=== PATIENT | female | born 2000 | race Caucasian/White ===

== ENCOUNTER 2020-04-14 10:47 | Emergency (ER) | payer OTHER, SELFPAY ==
--- NOTE | ~2020-04-14 | XR_ITS ---
XR chest 1V portable DATE: 04/14/2020 11:18 INDICATION: Weight loss. Weakness. TECHNIQUE: Portable upright AP chest on 04/14/2020 at 1118 hours COMPARISON: None FINDINGS: Normal heart size. No hilar or mediastinal enlargement. No pulmonary infiltrate or consolid ation, pleural effusion or pulmonary vascular congestion or pneumothorax. IMPRESSION: No active cardiopulmonary disease Reviewed, dictated and finalized at location A.
[2020-04-14 10:50] VITALS: BP 133/71; PULSE 100; RESP 18; TEMP 36.3; O2SAT 100
--- NOTE | 2020-04-14 11:08 | ECG_ITS ---
Measurements Intervals [place] Rate: 75 P: 63 [place]: 120 QRS: 82 QRSD: 79 T: 62 QT: 378 QTc: 422 Interpretive Statements SINUS RHYTHM BORDERLINE T WAVE ABNORMALITY- ANTERIOR LEADS BASELINE WANDER- V5-V6 BORDERLINE ECG Electronically Signed On 04-14-2020 13:28:55 CDT by Leon Oropeza D.O.
[2020-04-14 11:24] LABS: Basophils Absolute Auto 0.1 K/mm3 (0.0-0.1); Basophils Percent Auto 0.9 % (0.2-1.2); Eosinophils Absolute Auto 0.2 K/mm3 (0-0.3); Eosinophils Percent Auto 2.7 % (0-4.4); Hemoglobin 13.3 g/dL (12.0-15.0); Immature Granulocyte Absolute 0.01 K/mm3 (0.00-0.031); Immature Granulocyte Percent A 0.2 % (0-0.5); Lymphocytes Absolute Auto 2.24 K/mm3 (0.9-3.2); Lymphocytes Percent Auto 33.9 % (18.3-44.2); Mean Corpuscular Hemoglobin 30.2 pg (26-34); Mean Corpuscular Volume 86.2 fl (80-100); Monocytes Absolute Auto 0.6 K/mm3 (0.1-0.6); Monocytes Percent Auto 8.6 % (2.6-8.5); Neutrophils Absolute Auto 3.6 K/mm3 (1.3-6.7); Neutrophils Percent Auto 53.7 % (45.5-73.1); Platelet Count Result 324 k/mm3 (150-375); Red Blood Count 4.41 M/mm3 (4.2-5.4); Red Cell Distribution Width 12.3 % (11.5-14.5); White Blood Count 6.6 K/mm3 (4.5-10.0)
[2020-04-14 11:35] LABS: Add Urine Microscopic? YES; Appearance Urine Clear (Clear); Bilirubin Urine Negative (Negative); Blood Urine 1+ (Negative); Color Urine Straw (Yellow); Glucose Urine UA Negative (Negative); Ketones Urine Negative (Negative); Leukocyte Esterase Ur Negative LEU/UL (Negative); Nitrate Urine Negative (Negative); Protein Urine Negative (Negative); RBC Urine 0-2 /hpf (0-2); Specific Grav Ur 1.006 (1.001-1.035); Squamous Epithelial Cell Urine Occasional /hpf (Few); Urobilinogen Urine Negative mg/dL (<2.0); WBC Urine 0-3 /hpf
[2020-04-14 11:38] LABS: D Dimer < 0.22 ug/mL (<0.48)
[2020-04-14 13:02] LABS: Alanine Aminotransferase 10 U/L (4-35); Albumin Level 4.5 g/dL (3.5-5.1); Alkaline Phosphatase 47 U/L (38-126); Aspartate Amino Transferase 23 U/L (14-36); Bilirubin,Total 0.4 mg/dL (0.2-1.3); Blood Urea Nitrogen 7 mg/dL (7-17); Calcium 9.5 mg/dL (8.4-10.2); Carbon Dioxide 23 mmol/L (22-30); Chloride 106 mmol/L (98-107); Estimated Glomerular Filt Rate > 60; Glucose 86 mg/dL (65-105); Potassium 3.9 mmol/L (3.4-5.0); Sodium 136 mmol/L (137-145)
--- NOTE | 2020-04-14 13:08 | ED.DIZZY ---
HPI - Dizziness General Chief Complaint: Dizziness <KENTON Quiroz Last Filed: 04/14/20 13:20> Stated Complaint: SOB, weak <KENTON Quiroz Last Filed: 04/14/20 13:20> Time Seen by Provider: 04/14/20 11:07 <KENTON Quiroz Last Filed: 04/14/20 13:20> Source: patient <KENTON Quiroz Last Filed: 04/14/20 13:20> Mode of arrival: ambulatory <KENTON Quiroz Last Filed: 04/14/20 13:20> Limitations: no limitations <KENTON Quiroz Last Filed: 04/14/20 13:20> History of Present Illness HPI Narrative: Patient is a 20-year-old female who presents to emergency department for evaluation dizziness and weight loss and fatigue shortness of breath which is been present now for over a month. Patient denies any URI symptoms chest pain. Patient denies similar occurrence in the past patient on arrival per private vehicle presents with normal gait and no distress. . Patient does not have a primary care doctor . Patient is not been seen for these complaints <KENTON Quiroz Last Filed: 04/14/20 13:20> Related Data Home Medications: Home Medications Medication Instructions Recorded Confirmed desogestrel-ethinyl estradiol tablet 04/14/20 [Isibloom] <KENTON Quiroz Last Filed: 04/14/20 13:20> Allergies/Adverse Reactions: Allergies Allergy/AdvReac Type Severity Reaction Status Date / Time No Known Allergies Allergy Unverified 04/14/20 10:53 <Micky Barone PA-C - Last Filed: 04/14/20 13:20> Review of Systems Review of Systems: All systems reviewed & are unremarkable except as noted in HPI and below <KENTON Quiroz Last Filed: 04/14/20 13:20> [facility] Family History Family History: Family History (Updated 06/22/16 @ 23:19 by DOCTOR UNKNOWN) Grandparent Family history of malignant neoplasm of breast Family history of diabetes mellitus in first degree relative <KENTON Quiroz Last Filed: 04/14/20 13:20> Social History Social History: Social History Smoking status: Never smoker Alcohol intake: current Substance use type: marijuana Gender identity (if verbalized by the patient): Female <Micky Barone PA-C - Last Filed: 04/14/20 13:20> Exam Narrative: Exam Narrative: GENERAL: Well-appearing, well-nourished, and in no acute distress. HEAD: Normocephalic, atraumatic. EYES: PERRLA and EOMI. ENT: Nares clear, no rhinorrhea or epistaxis. Mucous membranes moist. Oropharynx without tonsillar hypertrophy exudate or other lesions. Bilateral TMs pearly richards nonbulging NECK: Supple. No adenopathy or masses. CHEST: Clear to auscultation. No respiratory distress. No wheezes rales or rhonchi HEART: Regular rate and rhythm. No murmur heard. Normal peripheral pulses. ABDOMEN: Soft, nontender, nondistended EXTREMITIES: Normal range of motion. No edema. SKIN: Warm, dry, no rash. NEURO: No focal deficits. Alert and oriented x3. Cranial nerves II through XII grossly intact PSYCH: Normal mood and affect. <Micky Barone PA-C - Last Filed: 04/14/20 13:20> Course Course Emergency Course: Patient in the room in no distress aware of case findings treatment plan and diagnosis agreeing to follow-up as directed or to return if symptoms worsen or concerns <Micky Barone PA-C - Last Filed: 04/14/20 13:20> Vital Signs Vital signs: Vital Signs Temperature 97.4 F L 04/14/20 10:50 Pulse Rate 100 04/14/20 10:50 Respiratory Rate 18 04/14/20 10:50 Blood Pressure 133/71 04/14/20 10:50 Pulse Oximetry 100 04/14/20 10:50 Temperature 97.4 F L 04/14/20 10:50 Pulse Rate 80 04/14/20 13:33 Respiratory Rate 18 04/14/20 13:33 Blood Pressure 128/78 04/14/20 13:33 Pulse Oximetry 100 04/14/20 13:33 <Micky Barone PA-C - Last Filed: 04/14/20 13:20> Vital Signs
[2020-04-14 13:30] LABS: Barbiturate Screen Urine Negative (Negative); Benzodiazepines Screen Urine Negative (Negative)
[2020-04-14 13:33] VITALS: BP 128/78; PULSE 80; RESP 18; O2SAT 100
[2020-04-14 13:40] LABS: Amphetamine Screen Urine Negative (Negative); Cannabinoid Screen Urine Negative (Negative); Cocaine Screen Urine Negative (Negative); Methadone Screen Urine Negative (Negative); Opiate Screen Urine Negative (Negative); Phencyclidine Screen Urine Negative (Negative)
== END 2020-04-14 13:34 | disposition home or self-care (01) ==
PROVIDERS: Emergency Medicine Emergency Medical Services; Emergency Provider General Practice
DX: R42 Dizziness and giddiness (principal); R94.31 Abnormal electrocardiogram [ECG] [EKG]
CPT/HCPCS: 36415; 71045; 80053; 80307; 81001; 81025; 85025; 85380; 93005; 99283

== ENCOUNTER 2021-03-22 10:53 | Emergency (ER) | payer OTHER, SELFPAY ==
[2021-03-22 10:59] VITALS: BP 112/77; PULSE 81; RESP 16; TEMP 37.1; O2SAT 100
--- NOTE | 2021-03-22 11:56 | ED.FEMALEGU ---
HPI - Female Genitourinary General Chief complaint: Urogenital-Female Stated complaint: poss uti Time Seen by Provider: 03/22/21 11:20 Source: patient, RN notes reviewed and old records reviewed Mode of arrival: ambulatory Limitations: no limitations History of Present Illness HPI Narrative: 21 year old female who presents to [facility] with complaints of burning with urination, urinary frequency and suprapubic cramping and pressure. Patient states that she has no visible blood in her urine, no complaints of nausea or vomiting, no fever, chills or sweats. Patient denies any flank pain states history of lumbar back pain for which she sees a chiropractor for care the past 6 months. Patient denies any vaginal discharge or itching, denies any new sexual partners or concern for possible STD's. MD elicited complaint: dysuria Onset (ago): day(s) (2) Location of symptoms: external genitalia and suprapubic Female Urogenital Radiation: Suprapubic Severity scale (1-10): 5 Quality of pain: cramping and aching Vaginal discharge: none Vaginal bleeding: none Urinary symptoms: Dysuria and Frequency Exacerbating factors: urination Relieving factors: none Associated symptoms: painful (urination) and other (suprapubic pain) Treatment prior to arrival: none Sexual activity: Yes Patient : No Date of Last Menstrual Period: 03/17/21 Related Data Home Medications Medication Instructions Recorded Confirmed desogestrel-ethinyl estradiol tablet 04/14/20 [Isibloom] Allergies Allergy/AdvReac Type Severity Reaction Status Date / Time No Known Allergies Allergy Verified 03/22/21 11:06 Review of Systems Review of Systems: Narrative: CONSTITUTIONAL: Denies fever, chills, or sweats. EYES: Denies visual changes, redness, or discharge. ENT: Denies rhinorrhea, congestion, sore throat, or otalgia. CARDIOVASCULAR: Denies chest pain, palpitations, or edema. RESPIRATORY: Denies cough or dyspnea. GASTROINTESTINAL: Positive suprapubic abdominal pain and tenderness,no nausea, vomiting, or diarrhea. GENITOURINARY: Positive dysuria or hematuria. SKIN: Denies rash or itching. MUSCULOSKELETAL: Positive for lower back pain,no joint pain, or myalgia. NEUROLOGIC: Denies headache, numbness, or weakness. PSYCHIATRIC: Denies anxiety or depression. All systems reviewed & are unremarkable except as noted in HPI and below PMFSH Past Medical History Medical History (Updated 03/22/21 @ 12:25 by Yoly Zhong NP) Lower back pain Surgical History Surgical History (Updated 03/22/21 @ 12:04 by Yoly Zhong NP) History of tonsillectomy and adenoidectomy Family History Family History Grandparent Family history of malignant neoplasm of breast Family history of diabetes mellitus in first degree relative Social History Social History (Updated 03/22/21 @ 12:43 by Yoly Zhong NP) Tobacco type: e-cigarettes/vaping Alcohol intake: current Substance use type: marijuana Gender identity (if verbalized by the patient): Female Comments At time of signature, agree with nursing past medical, surgical, social and family history. There is no relevant family history pertinent to the presenting complaint Exam Narrative: Exam Narrative: GENERAL: Well-appearing, well-nourished, and in no acute distress. HEAD: Normocephalic, atraumatic. EYES: PERRLA and EOMI. ENT: Nares clear, no rhinorrhea or epistaxis. Mucous membranes moist. NECK: Supple.no lymphadenopathy CHEST: Clear to auscultation. No respiratory distress.SAO2 100% on room air HEART: Regular rate and rhythm. No murmur heard. Normal peripheral pulses. ABDOMEN: Soft, tender suprapubic, nondistended, normal active bowel sounds, no CVA tenderness on examination. EXTREMITIES: Normal range of motion. No edema. lower back pain history for which she sees chiropractor, denies any tingling or numbness to her lower extremities, no saddle pa
== END 2021-03-22 12:15 | disposition home or self-care (01) ==
PROVIDERS: Emergency Provider Registered Nurse
DX: N39.0 Urinary tract infection, site not specified (principal); F17.200 Nicotine dependence, unspecified, uncomplicated
CPT/HCPCS: 81003; 87086; 99213; G0463

== ENCOUNTER 2021-11-01 09:39 | Outpatient (CLI) | payer OTHER, SELFPAY | END 2021-11-01 09:40 | disposition home or self-care (01) | PROVIDERS: PCP Family Medicine; Visit Provider Family Medicine | DX: R63.4 Abnormal weight loss (principal) | CPT/HCPCS: 36415; 84443 ==

== ENCOUNTER 2022-03-20 09:12 | Outpatient (CLI) | payer OTHER, SELFPAY ==
--- NOTE | ~2022-03-20 | XR_ITS ---
EXAMINATION: XR ankle LT min 3V DATE: 03/20/2022 09:22 INDICATION: Left ankle pain TECHNIQUE: Anteroposterior, oblique, mortise, and lateral views of the left ankle were obtained. COMPARISON: None. FINDINGS: Alignment is normal. No fracture. Joint spaces are well maintained. No ankle joint effusion. The so ft tissues are unremarkable. IMPRESSION: 1. Negative left ankle radiographs. Reviewed, dictated and finalized at location B.
== END 2022-03-20 09:13 | disposition home or self-care (01) ==
PROVIDERS: PCP Family Medicine; Visit Provider Family Medicine
DX: M25.572 Pain in left ankle and joints of left foot (principal)
CPT/HCPCS: 73610

== ENCOUNTER 2023-06-27 11:26 | Outpatient (CLI) | payer OTHER, SELFPAY ==
--- NOTE | ~2023-06-27 | XR_ITS ---
EXAMINATION: XR wrist RT 2V, XR hand RT 2V DATE: 06/27/2023 11:40 INDICATION: Right wrist pain post injury TECHNIQUE: 1. Posteroanterior and lateral views of the right wrist were obtained. 2. Dorsal palmar and lateral views of the right hand were obtained. COMPARISON: None. FINDINGS: Alignment of the right hand and wrist is normal. No fracture identified. Joint spaces are normal. No erosions. No focal soft tissue swelling. IMPRESSION: 1. Negative right hand and wrist radiographs. Reviewed, dictated and finalized at location A. IMPRESSION: 1. Negative right hand and wrist radiographs.
[2023-06-27 18:37] LABS: Mean Corpuscular HGB Conc 33.3 g/dl (32-36); Mean Corpuscular Volume 87.1 fl (80-100); Mean Platelet Volume 10.6 fl (7.4-10.4); Platelet Count Result 374 k/mm3 (150-375); Red Blood Count 4.48 M/mm3 (4.2-5.4); Red Cell Distribution Width 12.1 % (11.5-14.5); White Blood Count 9.6 K/mm3 (4.5-10.0)
[2023-06-27 18:56] LABS: Anion Gap 9 mmol/L (8-16); Blood Urea Nitrogen 6 mg/dL (7-17); Calcium 9.4 mg/dL (8.4-10.2); Carbon Dioxide 23 mmol/L (22-30); Chloride 103 mmol/L (98-107); Estimated Glomerular Filt Rate > 60; Glucose 80 mg/dL (65-110); Potassium 4.4 mmol/L (3.4-5.0); Sodium 135 mmol/L (137-145)
== END 2023-06-27 11:27 | disposition home or self-care (01) ==
LOC: ANHBWCLAB 11:28
PROVIDERS: PCP Family Medicine; Visit Provider Nurse Practitioner Adult Health
DX: R53.83 Other fatigue (principal); M25.539 Pain in unspecified wrist
CPT/HCPCS: 36415; 73100; 73120; 80048; 84443; 85027

== ENCOUNTER 2023-08-20 08:42 | Outpatient (CLI) | payer OTHER, SELFPAY ==
--- NOTE | 2023-08-20 11:30 | NEURO_ITS ---
Impression: # Complains of numbness and pain in hands. # Normal Nerve Conduction Study. # No evidence of Carpal Tunnel Syndrome or ulnar neuropathy at this time. # Normal needle/EMG. Nerve Conduction Studies Anti Sensory Summary Table Stim Site NR Peak (ms) P-T Amp (?V) Site1 Site2 Delta-P (ms) Dist (cm) [place] (m/s) Left Median Anti Sensory (2-3nd Digit) Wrist 2.8 92.6 Wrist 2-3nd Digit 2.8 14.0 50 Wrist 2.8 75.5 Wrist 2-3nd Digit 2.8 14.0 50 Right Median Anti Sensory (2-3nd Digit) Wrist 2.7 73.7 Wrist 2-3nd Digit 2.7 14.0 52 Wrist 2.5 83.3 Wrist 2-3nd Digit 2.7 14.0 52 Left Radial Anti Sensory (Base 1st Digit) Wrist 1.8 27.5 Wrist Base 1st Digit 1.8 0.0 Right Radial Anti Sensory (Base 1st Digit) Wrist 2.1 19.5 Wrist Base 1st Digit 2.1 0.0 Left Ulnar Anti Sensory (5th Digit) Wrist 2.6 53.4 Wrist 5th Digit 2.6 14.0 54 Right Ulnar Anti Sensory (5th Digit) Wrist 2.8 22.6 Wrist 5th Digit 2.8 14.0 50 Motor Summary Table Stim Site NR Onset (ms) O-P Amp (mV) Site1 Site2 Delta-0 (ms) Dist (cm) [place] (m/s) Left Median Motor (Abd Poll Brev) Wrist 2.7 5.2 Elbow Wrist 4.1 26.0 63 Elbow 6.8 10.7 Right Median Motor (Abd Poll Brev) Wrist 2.6 9.8 Elbow Wrist 4.0 26.0 65 Elbow 6.6 11.0 Left Ulnar Motor (Abd Dig Minimi) Wrist 2.2 6.2 A Elbow Wrist 4.1 25.0 61 A Elbow 6.3 5.4 Right Ulnar Motor (Abd Dig Minimi) Wrist 2.0 11.4 A Elbow Wrist 4.3 27.0 63 A Elbow 6.3 10.9 F Wave Studies NR F-Lat (ms) L-R F-Lat (ms) Left Median (Mrkrs) (Abd Poll Brev) 23.24 0.29 Right Median (Mrkrs) (Abd Poll Brev) 23.54 0.29 Left Ulnar (Mrkrs) (Abd Dig Min) 24.38 0.31 Right Ulnar (Mrkrs) (Abd Dig Min) 24.06 0.31 EMG Side Muscle Nerve Root Ins Act Fibs Amp Dur Recrt Comment Right 1stDorInt Ulnar C8-T1 Nml Nml Nml Nml Nml Right Ext Indicis Radial (Post Int) C7-8 Nml Nml Nml Nml Nml Right Ext Digitorum Radial (Post Int) C7-8 Nml Nml Nml Nml Nml Right BrachioRad Radial C5-6 Nml Nml Nml Nml Nml Right PronatorTeres Median C6-7 Nml Nml Nml Nml Nml Right Abd Poll Brev Median C8-T1 Nml Nml Nml Nml Nml Left 1stDorInt Ulnar C8-T1 Nml Nml Nml Nml Nml Left Ext Indicis Radial (Post Int) C7-8 Nml Nml Nml Nml Nml Left Ext Digitorum Radial (Post Int) C7-8 Nml Nml Nml Nml Nml Left BrachioRad Radial C5-6 Nml Nml Nml Nml Nml Left PronatorTeres Median C6-7 Nml Nml Nml Nml Nml Left Abd Poll Brev Median C8-T1 Nml Nml Nml Nml Nml MTDD
== END 2023-08-20 08:43 | disposition home or self-care (01) ==
LOC: ANHNEURO 08:43
PROVIDERS: PCP Nurse Practitioner Adult Health; Visit Provider Nurse Practitioner Adult Health
DX: R20.2 Paresthesia of skin (principal)
CPT/HCPCS: 95886; 95911

== ENCOUNTER 2024-01-21 16:42 | Emergency (ER) | payer OTHER, SELFPAY ==
[2024-01-21 16:49] VITALS: BP 115/67; PULSE 85; RESP 16; TEMP 36.9; O2SAT 100
--- NOTE | 2024-01-21 17:32 | ED.GENADULT ---
HPI - General Adult General Chief complaint: Upper Respiratory Infection Stated complaint: throat/fever/sinus Source: patient Mode of arrival: ambulatory Limitations: no limitations History of Present Illness HPI narrative: Patient presents for evaluation of sick symptoms for last 9 days. Symptoms include fever, cough, mild shortness of breath, sore throat, sinus congestion, clear rhinorrhea, frontal headache and generalized body aches. 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 She took COVID and flu tests six days ago and again yesterday with negative results for all tests. She uses smokeless tobacco. Related Data Allergies Allergy/AdvReac Type Severity Reaction Status Date / Time No Known Allergies Allergy Verified 12/12/23 13:04 Review of Systems Review of Systems: CONSTITUTIONAL: Reports fever. Denies chills, or sweats. EYES: Denies visual changes, redness, or discharge. ENT: Reports sore throat, nasal congestion and clear rhinorrhea.. CARDIOVASCULAR: Denies chest pain, palpitations, or edema. RESPIRATORY: Reports cough shortness of breath. GASTROINTESTINAL: Denies abdominal pain, nausea, vomiting, or diarrhea. GENITOURINARY: Denies dysuria or hematuria. SKIN: Denies rash or itching. MUSCULOSKELETAL: Reports generalized body aches. NEUROLOGIC: Reports headache. Denies numbness, dizziness, or weakness. PSYCHIATRIC: Denies anxiety or depression. [facility] Past Medical History Medical History Anxiety History of frequent headaches Lower back pain Surgical History Surgical History History of tonsillectomy and adenoidectomy Family History Family History Grandparent Family history of malignant neoplasm of breast Family history of diabetes mellitus in first degree relative Hypertension Alcohol abuse Sibling Depression Anxiety Social History Social History Tobacco type: smokeless tobacco Alcohol intake: current Drinks per week: 2 Substance use: former Substance use type: marijuana Lack of Transportation: No Lack of Food: Never True Current Housing: I Have Housing Concerned About Future Housing: No Difficulty Paying Gas/Electric Bills: No Difficulty Paying for Meds: No Currently Unemployed: No Education: Trade/Vocational Certificate Difficulty w/ Childcare or Family Care: No Living arrangements: with family Gender identity (if verbalized by the patient): Female Exam Narrative: GENERAL: Well-appearing, well-nourished, and in no acute distress. HEAD: Normocephalic, atraumatic. EYES: PERRLA and EOMI. ENT: Nares clear, no rhinorrhea or epistaxis. Mucous membranes moist. Posterior pharyngeal erythema without exudate. Uvula is midline. Bilateral TMs pearly richards nonbulging NECK: Supple. No adenopathy or masses. No carotid bruits or JVD CHEST: Clear to auscultation. No respiratory distress. No wheezes rales or rhonchi HEART: Regular rate and rhythm. No murmur heard. Normal peripheral pulses. ABDOMEN: Soft, nontender, nondistended, normal active bowel sounds. EXTREMITIES: Normal range of motion. No edema. SKIN: Warm, dry, no rash. NEURO: No focal deficits. Alert and oriented x3. PSYCH: Normal mood and affect. Course Course Emergency Course: This is a 24 old female who presented for evaluation of sick symptoms for 9 days. Recent flu and COVID test were negative. She meets criteria for ABRS based upon duration of time in which she has been symptomatic and presence of fever. Will dc with augmentin. Increase hydration. [id number] agents for symptom management. Follow up with primary provider. Go to the ER for worsening symptoms. Patient in agreement with plan of care. Level of Care: Expr
== END 2024-01-21 17:35 | disposition home or self-care (01) ==
PROVIDERS: Emergency Provider Nurse Practitioner; PCP Family Medicine
DX: J01.90 Acute sinusitis, unspecified (principal); F17.290 Nicotine dependence, other tobacco product, uncomplicated
CPT/HCPCS: 99213; G0463

== ENCOUNTER 2024-02-13 12:39 | Outpatient (CLI) | payer OTHER, SELFPAY ==
[2024-02-13 20:06] LABS: Alanine Aminotransferase 15 U/L (6-35); Albumin Level 4.4 g/dL (3.5-5.1); Alkaline Phosphatase 53 U/L (38-126); Anion Gap 6 mmol/L (8-16); Aspartate Amino Transferase 44 U/L (14-36); Bilirubin,Total 0.6 mg/dL (0.2-1.3); Blood Urea Nitrogen 14 mg/dL (7-17); Calcium 9.7 mg/dL (8.4-10.2); Carbon Dioxide 28 mmol/L (22-30); Chloride 103 mmol/L (98-107); Estimated Glomerular Filt Rate > 60; Glucose 80 mg/dL (65-110); Magnesium 2.1 mg/dL (1.6-2.3); Potassium 4.4 mmol/L (3.4-5.0); Sodium 137 mmol/L (137-145)
[2024-02-13 21:11] LABS: Folic Acid 15.1 ng/mL (2.76->20)
[2024-02-13 22:41] LABS: Vitamin D 25 Hydroxy 44.1 ng/mL
== END 2024-02-13 12:40 | disposition home or self-care (01) ==
LOC: ANHBWCLAB 12:44
PROVIDERS: PCP Family Medicine; Visit Provider Nurse Practitioner Adult Health
DX: R53.83 Other fatigue (principal)
CPT/HCPCS: 36415; 80053; 82306; 82607; 82746; 83735

== ENCOUNTER 2024-10-05 13:06 | Emergency (ER) | payer OTHER, SELFPAY ==
[2024-10-05 13:07] VITALS: BP 105/68; PULSE 82; RESP 15; TEMP 36.3; O2SAT 99
--- NOTE | 2024-10-05 15:13 | ED_ITS ---
HPI - General Adult General Chief complaint: Nausea/Vomiting/Diarrhea Stated complaint: N/V Time Seen by Provider: 10/05/24 14:45 History of Present Illness HPI narrative: [age] old female presents to the emergency department for evaluation of nausea vomiting and diarrhea that started last night. Patient states that she started having symptoms yesterday and the slowly progressed and patient is unable to keep down any fluids at this time. Patient denies any pain with urination denies any abdominal pain. Patient does not suspect Related Data Allergies Allergy/AdvReac Type Severity Reaction Status Date / Time amoxicillin AdvReac Intermediate Nausea Verified 07/30/24 13:25 Review of Systems Review of Systems: All systems reviewed & are unremarkable except as noted in HPI and below PMFSH Past Medical History Medical History Anxiety History of frequent headaches Lower back pain Surgical History Surgical History History of tonsillectomy and adenoidectomy Family History Family History Grandparent Family history of malignant neoplasm of breast Family history of diabetes mellitus in first degree relative Hypertension Alcohol abuse Sibling Depression Anxiety Social History Social History Smoking status: Never smoker Tobacco type: smokeless tobacco Alcohol intake: current Drinks per week: 2 Substance use: former Substance use type: marijuana Lack of Transportation: No Lack of Food: Never True Current Housing: I Have Housing Concerned About Future Housing: No Difficulty Paying Gas/Electric Bills: No Difficulty Paying for Meds: No Currently Unemployed: No Education: Trade/Vocational Certificate Difficulty w/ Childcare or Family Care: No Living arrangements: with family Gender identity (if verbalized by the patient): Female Exam Narrative: APPEARANCE: Well appearing, no pain, no distress, well-nourished. HEAD: normocephalic, atraumatic. EYES: PERRLA/EOMI, conjunctivae clear. NOSE: Normal no drainage EARS:TMS clear with good light reflex. THROAT: Pharynx clear, no exudate. NECK: Supple. No adenopathy, no masses. RESPIRATORY: Airway patent, respirations nonlabored. Clear to auscultation bilaterally, no rales, rhonchi, wheezing. CARDIOVASCULAR: Regular rate and rhythm without murmurs rubs or gallops. ABDOMINAL: Soft, nontender, nondistended, normal bowel sounds MUSCULOSKELETAL: Moves all extremities. Strength/ROM intact, No edema, No calf tenderness. NEURO: Alert. Cranial nerves II through XII intact. Good gait. Good coordination SKIN: Warm, dry. Normal Color Course Vital Signs Vital signs: Vital Signs Temperature 97.4 F L 10/05/24 13:07 Pulse Rate 82 10/05/24 13:07 Respiratory Rate 15 10/05/24 13:07 Blood Pressure 105/68 10/05/24 13:07 Pulse Oximetry 99 10/05/24 13:07 Oxygen Delivery Room Air 10/05/24 13:07 Temperature 97.4 F L 10/05/24 13:07 Pulse Rate 98 10/05/24 17:30 Respiratory Rate 16 10/05/24 17:30 Blood Pressure 120/76 10/05/24 17:30 Pulse Oximetry 99 10/05/24 17:30 Oxygen Delivery Room Air 10/05/24 13:07 Medical Decision Making MDM Narrative Medical decision making narrative: [age] old female present to the emergency department for evaluation for nausea vomiting and diarrhea. Patient is afebrile but does have a leukocytosis of 10.9 and hemoglobin of 13.6. Patient has no significant abnormalities on her CMP. UA was positive for ketones but negative for infection, patient denies any urinary symptoms. Urine culture was ordered. On re-evaluation patient is tolerating p.o. and does feel improved. Patient and family were updated on the results of the workup and recommended plan for clear liquid diet for the next 2 days along with Zofran for nausea control and to advance to a bland diet. All questions concerns were addressed patient was comfortable plan for discharge and close follow-up. Differential Diagnosis Differential Diagnosis: , nausea vomiting diarrhea, colitis, diverticulitis, gastroenteritis, appendicitis, UTI Vital Signs Vital Signs: Vital Signs Temperature 97.4 F L 10/05/24 13:07 Pulse Rate 82 10/05/24 13:07 Respiratory Rate 15 10/05/24 13:07 Blood Pressure 105/68 10/05/24 13:07 Pulse Oximetry 99 10/05/24 13:07 Oxygen Delivery Room Air 10/05/24 13:07 Temperature 97.4 F L 10/05/24 13:07 Pulse Rate 98 10/05/24 17:30 Respiratory Rate 16 10/05/24 17:30 Blood Pressure 120/76 10/05/24 17:30 Pulse Oximetry 99 10/05/24 17:30 Oxygen Delivery Room Air 10/05/24 13:07 Lab Data Lab results reviewed: Yes I reviewed the patient's lab results. 10/05/24 15:12 10/05/24 15:12 Labs: Lab Results 10/05/24 10/05/24 Range/Units 15:12 15:17 WBC 10.9 H (4.5-10.0) K/mm3 RBC 4.72 (4.2-5.4) M/mm3 Hgb 13.6 (12.0-15.0) g/dL Hct 41.2 (37.0-47.0) % MCV 87.3 (80-100) fl MCH 28.8 (26-34) pg MCHC 33.0 (32-36) g/dl RDW 12.3 (11.5-14.5) % Plt Count 330 (150-375) k/mm3 MPV 9.7 (7.4-10.4) fl Immature Gran % (Auto) 0.3 (0-0.5) % Neut % (Auto) 77.3 H (45.5-73.1) % Lymph % (Auto) 15.5 L (18.3-44.2) % [place] % (Auto) 5.5 (2.6-8.5) % Eos % (Auto) 0.8 (0-4.4) % Baso % (Auto) 0.6 (0.2-1.2) % Lymph # (Auto) 1.69 (0.9-3.2) K/mm3 [place] # (Auto) 0.6 (0.1-0.6) K/mm3 Eos # (Auto) 0.1 (0-0.3) K/mm3 Baso # (Auto) 0.1 (0.0-0.1) K/mm3 Abs Immat Gran (auto) 0.03 (0.00-0.031) K/mm3 Absolute Neuts (auto) 8.4 H (1.3-6.7) K/mm3 Absolute Nucleated RBC 0.000 (0.0-0.012) K/mm3 Nucleated RBC % 0.0 (0.0-0.2) % Sodium 136 L (137-145) mmol/L Potassium 4.1 (3.4-5.0) mmol/L Chloride 101 (98-107) mmol/L Carbon Dioxide 19 L (22-30) mmol/L Anion Gap 16 H (4-12) mmol/L BUN 12 (7-17) mg/dL Creatinine 0.70 (0.7-1.0) mg/dL Estim Creat Clear Calc Not Reportable Estimated GFR > 60 (59 - ) Glucose 63 L (65-110) mg/dL Calcium 9.7 (8.4-10.2) mg/dL Total Bilirubin 1.1 (0.2-1.3) mg/dL AST 158 H (14-36) U/L ALT 331 H (6-35) U/L Alkaline Phosphatase 55 (38-126) U/L Total Protein 9.0 H (6.3-8.2) g/dL Albumin 4.9 (3.5-5.1) g/dL Lipase 69 (23-300) U/L Urine Color Dark yellow (Yellow) Urine Appearance Cloudy H (Clear) Urine pH 6.0 (5.0-9.0) Ur Specific [place] 1.032 (1.001-1.035) Urine Protein 1+ H (Negative) mg/dL Urine Glucose (UA) Negative (Negative) mg/dL Urine Ketones 4+ H (Negative) mg/dL Ur Blood (Man) Negative (Negative) Urine Nitrate Negative (Negative) Urine Bilirubin Negative (Negative) Urine Urobilinogen 1.0 (<2.0) mg/dL Add Ur Microanalysis Reviewed Leukocyte Esterase Rfl Negative (Negative) HARRIS/UL Urine RBC 0-2 (0-2) /hpf Urine WBC 0-5 (0-3) /hpf Ur Squamous Epith Cells Moderate (Few) /hpf Urine Bacteria 2+ H /hpf Urine Casts 3-5 Urine Mucus Present /lpf POC Urine HCG, Qual Negative (Negative) Discharge Plan Discharge Clinical Impression: Nausea vomiting and diarrhea Patient Disposition: Home, Self-Care Condition: Stable Instructions: Antibiotic Form, Clear Liquid Diet (ED), Acute Nausea and Vo miting (ED) Additional Instructions: Clear liquid diet for the next 1-3 days. Zofran as needed for nausea control. Have close follow-up with your primary care physician. If you have any worsening symptoms then please call or return to the emergency department. Prescriptions: New ondansetron 4 mg tablet,disintegrating 4 mg PO Q8H PRN (Reason: nausea and vomiting) Qty: 20 0RF No Action buspirone 10 mg tablet 10 mg PO BID Qty: 60 3RF venlafaxine [Effexor XR] 75 mg capsule,extended release 24hr 75 mg PO DAILY Qty: 30 1RF Ubrelvy 100 mg tablet 100 mg PO ONCE PRN (Reason: headache) Qty: 14 0RF Rx Instructions: as a single dose; may repeat once in >=2 hours after first dose if needed Follow-up/Referrals: Kyra Quiñones APRN [Primary Care Provider] - Stand Alone Forms: Work/School Release IP
[2024-10-05 15:18] LABS: BEDSIDEPREGUCG Negative (Negative)
[2024-10-05 15:24] LABS: Basophils Absolute Auto 0.1 K/mm3 (0.0-0.1); Basophils Percent Auto 0.6 % (0.2-1.2); Eosinophils Absolute Auto 0.1 K/mm3 (0-0.3); Eosinophils Percent Auto 0.8 % (0-4.4); Hematocrit 41.2 % (37.0-47.0); Hemoglobin 13.6 g/dL (12.0-15.0); Immature Granulocyte Absolute 0.03 K/mm3 (0.00-0.031); Immature Granulocyte Percent A 0.3 % (0-0.5); Lymphocytes Absolute Auto 1.69 K/mm3 (0.9-3.2); Lymphocytes Percent Auto 15.5 % (18.3-44.2); Mean Corpuscular Hemoglobin 28.8 pg (26-34); Mean Corpuscular Volume 87.3 fl (80-100); Mean Platelet Volume 9.7 fl (7.4-10.4); Monocytes Absolute Auto 0.6 K/mm3 (0.1-0.6); Monocytes Percent Auto 5.5 % (2.6-8.5); Neutrophils Absolute Auto 8.4 K/mm3 (1.3-6.7); Neutrophils Percent Auto 77.3 % (45.5-73.1); Platelet Count Result 330 k/mm3 (150-375); Red Blood Count 4.72 M/mm3 (4.2-5.4); Red Cell Distribution Width 12.3 % (11.5-14.5); White Blood Count 10.9 K/mm3 (4.5-10.0)
[2024-10-05 15:34] LABS: Alanine Aminotransferase 331 U/L (6-35); Albumin Level 4.9 g/dL (3.5-5.1); Alkaline Phosphatase 55 U/L (38-126); Anion Gap 16 mmol/L (4-12); Aspartate Amino Transferase 158 U/L (14-36); Bilirubin,Total 1.1 mg/dL (0.2-1.3); Blood Urea Nitrogen 12 mg/dL (7-17); Calcium 9.7 mg/dL (8.4-10.2); Carbon Dioxide 19 mmol/L (22-30); Chloride 101 mmol/L (98-107); Estimated Glomerular Filt Rate > 60; Glucose 63 mg/dL (65-110); Lipase 69 U/L (23-300); Potassium 4.1 mmol/L (3.4-5.0); Sodium 136 mmol/L (137-145)
[2024-10-05 15:52] LABS: Add Urine Microscopic? YES; Appearance Urine Cloudy (Clear); Bacteria Urine 2+ /hpf; Bilirubin Urine Negative (Negative); Blood Urine Negative (Negative); Color Urine Dark Yellow (Yellow); Glucose Urine UA Negative (Negative); Ketones Urine 4+ mg/dL (Negative); Leukocyte Esterase Ur Negative LEU/UL (Negative); Mucus Urine Present /lpf; Need Manual Microscopic Reviewed; Nitrate Urine Negative (Negative); Protein Urine 1+ mg/dL (Negative); RBC Urine 0-2 /hpf (0-2); Specific Grav Ur 1.032 (1.001-1.035); Squamous Epithelial Cell Urine Moderate /hpf (Few); WBC Urine 0-5 /hpf (0-3)
[2024-10-05] MEDS: SODIUM CHLORIDE 0.9% IV 1,000 ML 999 ML IV CONT (15:56)
[2024-10-05] MEDS: ONDANSETRON INJ 4 MG/2 ML VIAL IV PUSH (15:56)
--- NOTE | 2024-10-05 17:20 | PC.NURSE ---
Pt educated that her B.S. is low. Pt now able to tolerate oral intake. Pt verbalized understanding and states she will continue to stay hydrated with drinks containing sugar and electrolytes tonight.
--- NOTE | 2024-10-05 17:22 | PC.NURSE ---
Pt reports improvement in nausea. Pt able to tolerate oral intake without episode of emesis.
[2024-10-05 17:30] VITALS: BP 120/76; PULSE 98; RESP 16; O2SAT 99
== END 2024-10-05 17:38 | disposition home or self-care (01) ==
PROVIDERS: Emergency Provider Emergency Medicine; PCP Nurse Practitioner Adult Health
DX: R11.2 Nausea with vomiting, unspecified (principal); R19.7 Diarrhea, unspecified; F41.9 Anxiety disorder, unspecified; F17.220 Nicotine dependence, chewing tobacco, uncomplicated; Z79.899 Other long term (current) drug therapy
CPT/HCPCS: 36415; 80053; 81001; 81025; 83690; 85025; 96361; 96374; 99284; J2405; J7030

== ENCOUNTER 2024-11-05 13:28 | Outpatient (CLI) | payer OTHER, SELFPAY ==
[2024-11-05 19:32] LABS: Alanine Aminotransferase 10 U/L (6-35); Albumin Level 4.3 g/dL (3.5-5.1); Alkaline Phosphatase 41 U/L (38-126); Aspartate Amino Transferase 25 U/L (14-36); Bilirubin,Total 0.4 mg/dL (0.2-1.3)
== END 2024-11-05 13:29 | disposition home or self-care (01) ==
LOC: ANHBWCLAB 13:29
PROVIDERS: PCP Nurse Practitioner Adult Health; Visit Provider Nurse Practitioner Adult Health
DX: R74.8 Abnormal levels of other serum enzymes (principal)
CPT/HCPCS: 36415; 80076

== ENCOUNTER 2024-12-04 18:59 | Emergency (ER) | payer OTHER, SELFPAY ==
--- NOTE | ~2024-12-04 | CT_ITS ---
EXAMINATION: CT brain wo con DATE: 12/04/2024 21:43 INDICATION: head injury . TECHNIQUE: Computed tomography (CT) of the head was performed without intravenous contrast. The mA wa s adjusted according to patient size. Iterative reconstruction technique was employed. The dose-lengt h product was 605.33 mGy-cm. COMPARISON: None. FINDINGS: No acute intracranial hemorrhage or extra-axial fluid collection. No hydrocephalus, mass, or herniation. No acute ischemic infarct. Unremarkable dural venous sinus attenuation. No acute osseous abnormality. Mild ethmoid and right sphenoid mucosal thickening, the remaining aerated spaces are clear. IMPRESSION: No acute intracranial process. Reviewed, dictated and finalized at location K. [facility]
[2024-12-04 19:24] VITALS: BP 112/72; PULSE 80; RESP 16; TEMP 36.7; O2SAT 99
--- NOTE | 2024-12-04 22:03 | ED.GENADULT ---
HPI - General Adult General Chief complaint: Head Injury Stated complaint: day 10 of my concussion and it's getting worse Time Seen by Provider: 12/04/24 21:08 History of Present Illness HPI narrative: 24 old female presenting to the emergency department for evaluation for persistent headache. Patient reports on your easy she had a fall and struck the back of her head. Patient denies loss consciousness. Patient states she has had persistent headache over the last few days. Patient had a follow-up with her primary care physician yesterday. Related Data Allergies Allergy/AdvReac Type Severity Reaction Status Date / Time amoxicillin AdvReac Intermediate Nausea Verified 12/03/24 11:43 Review of Systems Review of Systems: All systems reviewed & are unremarkable except as noted in HPI and below PMFSH Past Medical History Medical History (Updated 12/04/24 @ 22:18 by Shelton Ramey MD) Anxiety History of frequent headaches Lower back pain Surgical History Surgical History History of tonsillectomy and adenoidectomy Family History Family History Grandparent Family history of malignant neoplasm of breast Family history of diabetes mellitus in first degree relative Hypertension Alcohol abuse Sibling Depression Anxiety Social History Social History Smoking status: Never smoker Tobacco type: smokeless tobacco Alcohol intake: current Drinks per week: 2 Substance use: former Substance use type: marijuana Lack of Transportation: No Lack of Food: Never True Current Housing: I Have Housing Concerned About Future Housing: No Difficulty Paying Gas/Electric Bills: No Difficulty Paying for Meds: No Currently Unemployed: No Education: Trade/Vocational Certificate Difficulty w/ Childcare or Family Care: No Living arrangements: with family Gender identity (if verbalized by the patient): Female Exam Narrative: APPEARANCE: Well appearing, no pain, no distress, well-nourished. HEAD: normocephalic, atraumatic. EYES: PERRLA/EOMI, conjunctivae clear. NOSE: Normal no drainage EARS:TMS clear with good light reflex. THROAT: Pharynx clear, no exudate. NECK: Supple. No adenopathy, no masses. RESPIRATORY: Airway patent, respirations nonlabored. Clear to auscultation bilaterally, no rales, rhonchi, wheezing. CARDIOVASCULAR: Regular rate and rhythm without murmurs rubs or gallops. ABDOMINAL: Soft, nontender, nondistended, normal bowel sounds MUSCULOSKELETAL: Moves all extremities. Strength/ROM intact, No edema, No calf tenderness. NEURO: Alert. Cranial nerves II through XII intact. Good gait. Good coordination. Negative Romberg, negative forward and backward tandem gait SKIN: Warm, dry. Normal Color Course Vital Signs Vital signs: Vital Signs Temperature 98.1 F 12/04/24 19:24 Pulse Rate 80 12/04/24 19:24 Respiratory Rate 16 12/04/24 19:24 Blood Pressure 112/72 12/04/24 19:24 Pulse Oximetry 99 12/04/24 19:24 Temperature 98.1 F 12/04/24 19:24 Pulse Rate 63 12/04/24 22:33 Respiratory Rate 20 12/04/24 22:33 Blood Pressure 105/72 12/04/24 22:33 Pulse Oximetry 100 12/04/24 22:33 Medical Decision Making MDM Narrative Medical decision making narrative: 24-year-old female presenting to the emergency department for evaluation for intermittent headache and concern for concussion after having a head injury on [place]. Patient's neuro exam was negative. Patient had negative neuro exam. Patient's neuro imaging was negative. Patient and family were updated on the results of the workup patient was comfortable plan for discharge and close follow-up. Differential Diagnosis Differential Diagnosis: Skull fracture, subdural hematoma, subarachnoid hemorrhage, concussion, post concussive syndrome Vital Signs Vital Signs: Vital Signs Temperature 98.1 F 12/04/24 19:24 Pulse Rate 80 12/04/24 19:24 Respiratory Rate 16 12/04/24 19:24 Blood Pressure 112/72 12/04/24 19:24 Pulse Oximetry 99 12/04/24 19:24 Temperature 98.1 F 12/04/24 19:24 Pulse Rate 63 12/04/24 22:33 Respiratory Rate 20 12/04/24 22:33 Blood Pressure 105/72 12/04/24 22:33 Pulse Oximetry 100 12/04/24 22:33 Imaging Data Radiologist's impression: Impressions Head CT 12/04/24 21:49 IMPRESSION: No acute intracranial process. Discharge Plan Discharge Clinical Impression: Concussion, Head injury Patient Disposition: Home, Self-Care Condition: Stable Instructions: Antibiotic Form, Concussion (ED), Head Injury (ED) Additional Instructions: Follow head injury guidelines. Tylenol and ibuprofen for pain control. Have close follow-up with your primary care physician. If you have any worsening symptoms then please call or return to the emergency department. Patient Language: Trinidadian Prescriptions: No Action buspirone 10 mg tablet 10 mg PO BID Qty: 60 3RF famotidine 40 mg tablet 40 mg PO DAILY Qty: 30 0RF nicotine (polacrilex) 4 mg gum 4 mg buccal Q1H Qty: 100 1RF ondansetron 4 mg tablet,disintegrating 4 mg PO Q8H PRN (Reason: nausea and vomiting) Qty: 20 0RF venlafaxine 75 mg capsule,extended release 24hr See Rx Instructions .ROUTE .COMPLEX Qty: 30 3RF Dose Instruction: TAKE 1 CAPSULE BY MOUTH DAILY Rx Instructions: TAKE 1 CAPSULE BY MOUTH DAILY norelgestromin-ethin.estradiol [Xulane] 150-35 mcg/24 hr patch weekly 1 patch transdermal Q7D Qty: 3 6RF Rx Instructions: apply once weekly for 3 weeks of a 4-week cycle Ubrelvy 100 mg tablet See Rx Instructions .ROUTE .COMPLEX Qty: 14 3RF Dose Instruction: TAKE 1 TABLET BY MOUTH 1 TIME NEEDED FOR HEADACHE. MAY REPEAT 1 TIME IN>= 2 HOURS AFTER FOR 1 DOSE NEEDED Rx Instructions: TAKE 1 TABLET BY MOUTH 1 TIME NEEDED FOR HEADACHE. MAY REPEAT 1 TIME IN>= 2 HOURS AFTER FOR 1 DOSE NEEDED Follow-up/Referrals: Kyra Quiñones APRN [Primary Care Provider] -
[2024-12-04 22:33] VITALS: BP 105/72; PULSE 63; RESP 20; O2SAT 100
== END 2024-12-04 22:33 | disposition home or self-care (01) ==
PROVIDERS: Emergency Provider Emergency Medicine; PCP Nurse Practitioner Adult Health
DX: S06.0X0A Concussion without loss of consciousness, initial encounter (principal); W19.XXXA Unspecified fall, initial encounter
CPT/HCPCS: 70450; 99284

== ENCOUNTER 2025-03-25 11:06 | Outpatient (CLI) | payer OTHER, SELFPAY ==
[2025-03-25 19:26] LABS: Basophils Absolute Auto 0.1 K/mm3 (0.0-0.1); Basophils Percent Auto 0.7 % (0.2-1.2); Eosinophils Absolute Auto 0.1 K/mm3 (0-0.3); Eosinophils Percent Auto 1.5 % (0-4.4); Hematocrit 42.4 % (37.0-47.0); Hemoglobin 13.4 g/dL (12.0-15.0); Immature Granulocyte Absolute 0.02 K/mm3 (0.00-0.031); Immature Granulocyte Percent A 0.3 % (0-0.5); Lymphocytes Absolute Auto 1.95 K/mm3 (0.9-3.2); Lymphocytes Percent Auto 26.4 % (18.3-44.2); Mean Corpuscular HGB Conc 31.6 g/dl (32-36); Mean Corpuscular Hemoglobin 28.2 pg (26-34); Mean Corpuscular Volume 89.1 fl (80-100); Mean Platelet Volume 10.2 fl (7.4-10.4); Monocytes Absolute Auto 0.5 K/mm3 (0.1-0.6); Monocytes Percent Auto 6.8 % (2.6-8.5); Neutrophils Absolute Auto 4.8 K/mm3 (1.3-6.7); Neutrophils Percent Auto 64.3 % (45.5-73.1); Platelet Count Result 349 k/mm3 (150-375); Red Blood Count 4.76 M/mm3 (4.2-5.4); Red Cell Distribution Width 12.4 % (11.5-14.5); White Blood Count 7.4 K/mm3 (4.5-10.0)
[2025-03-25 19:45] LABS: Add Urine Microscopic? YES; Appearance Urine Clear (Clear); Bacteria Urine None Seen /hpf; Bilirubin Urine Negative (Negative); Blood Urine 2+ (Negative); Color Urine Yellow (Yellow); Glucose Urine UA Negative (Negative); Ketones Urine Negative (Negative); Leukocyte Esterase Ur Negative LEU/UL (Negative); Need Manual Microscopic Reviewed; Nitrate Urine Negative (Negative); Non Pathogenic Casts 0-2; Protein Urine Negative (Negative); RBC Urine 0-2 /hpf (0-2); Specific Grav Ur 1.002 (1.001-1.035); Squamous Epithelial Cell Urine None Seen /hpf (Few); Urobilinogen Urine 0.2 mg/dL (<2.0); WBC Urine 0-5 /hpf (0-3)
[2025-03-25 21:06] LABS: Free T4 Free Thyroxine 0.83 ng/dL (0.78-2.19)
[2025-03-25 21:07] LABS: Alanine Aminotransferase 19 U/L (6-35); Albumin Level 4.7 g/dL (3.5-5.1); Alkaline Phosphatase 48 U/L (38-126); Anion Gap 10 mmol/L (4-12); Aspartate Amino Transferase 41 U/L (14-36); Bilirubin,Total 0.3 mg/dL (0.2-1.3); Blood Urea Nitrogen 8 mg/dL (7-17); Calcium 9.5 mg/dL (8.4-10.2); Carbon Dioxide 26 mmol/L (22-30); Chloride 102 mmol/L (98-107); Estimated Glomerular Filt Rate > 60; Glucose 69 mg/dL (65-110); Potassium 3.8 mmol/L (3.4-5.0); Sodium 138 mmol/L (137-145)
[2025-03-25 21:39] LABS: Thyroid Stimulating Hormone 0.967 uIU/mL (0.465-4.680)
[2025-03-29 11:14] LABS: Thyroid Peroxidase Antibodies 134 IU/mL (<9)
== END 2025-03-25 11:07 | disposition home or self-care (01) ==
PROVIDERS: PCP Nurse Practitioner Adult Health; Visit Provider Nurse Practitioner Adult Health
DX: R61 Generalized hyperhidrosis (principal)
CPT/HCPCS: 36415; 80053; 81001; 84439; 84443; 85025; 86376

== ENCOUNTER 2025-03-31 11:19 | Outpatient (CLI) | payer OTHER, SELFPAY ==
--- NOTE | ~2025-03-31 | US_ITS ---
EXAMINATION: US thyroid DATE: 03/31/2025 12:20 INDICATION: Autoimmune thyroiditis TECHNIQUE: Multiple ultrasound images of the thyroid were obtained. COMPARISON: None. FINDINGS: The right thyroid lobe measures 4.7 x 1.7 x 1.3 cm. Within the right lobe of the thyroid gland is a 5.6 x 2.9 x 5.3 mm nodule: Composition -mixed cystic and solid (1) Echogenicity - hypoechoic (2) Shape - wider than tall Margin - smooth Echogenic foci - none. = TR3 Mildly suspicious Greater than or equal to 1.5 cm: Follow-up Greater than or equal to 2.5 cm: FNA The left thyroid lobe measures 4.3 x 1.0 x 1.2 cm. Within the left lobe of the thyroid gland is a 6.4 x 2.4 x 3.8 mm nodule: Composition -cystic or almost completely cystic Echogenicity -anechoic Shape - wider than tall Margin - smooth Echogenic foci - none. = TR 1, benign. The isthmus measures 0.4cm in anterior to posterior dimension. There is heterogeneous echotexture and echogenicity throughout the remainder of the thyroid gland. No additional discrete nodules identified. Increased vascular flow diffusely within the remainder of th e thyroid gland. IMPRESSION: TR3 nodule in the right lobe of the thyroid gland measuring 5.6 mm in greatest dimension. This nodule is mildly suspicious but does not meet size criteria for FNA or follow-up. While follow-up is not recommended, it may be performed. Benign nodule within the left lobe of the thyroid gland. Increased vascularity, consistent with patient's history. Reviewed, dictated and finalized at location A. IMPRESSION: TR3 nodule in the right lobe of the thyroid gland measuring 5.6 mm in greatest dimension. This nodule is mildly suspicious but does not meet size criteria for FNA or fol low-up. While follow-up is not recommended, it may be performed. Benign nodule within the left lobe of the thyroid gland. Increased vascularity, consistent with patient's history.
== END 2025-03-31 11:20 | disposition home or self-care (01) ==
LOC: GOSHIMG 11:19
PROVIDERS: PCP Nurse Practitioner Adult Health; Visit Provider Nurse Practitioner Adult Health
DX: E06.3 Autoimmune thyroiditis (principal)
CPT/HCPCS: 76536